=== PATIENT | male | born 1960 | race Caucasian/White ===

== ENCOUNTER 2020-05-06 13:55 | Emergency (ER) | payer BC, SELFPAY ==
--- NOTE | 2020-05-06 13:56 | ED.URI ---
HPI - URI/Sore Throat General Chief Complaint: Upper Respiratory Infection Stated Complaint: Covid 19 symptoms Time Seen by Provider: 05/06/20 13:56 Source: patient, family and RN notes reviewed History of Present Illness HPI Narrative: Patient is a 59-year-old male who presents the urgent care with complaints of Covid complications. Patient states he tested positive for Covid 10 days ago and has been using Tylenol and ibuprofen for his symptoms. Patient reports of a mild nonproductive cough with intermittent dyspnea. Patient states that he is short of breath on exertion but denies of any short of breath at rest. Denies of chest pain. States that he has had intermittent diarrhea. Reports of extreme fatigue that worsens throughout the day. Patient states that he woke up this morning and felt really good but is now very tired . Patient denies of any recent fevers. Denies of any upper respiratory symptoms such as runny nose, sore throat, sinus pressure. No other acute complaints. No acute distress noted. Patient does appear to be slightly fatigued. Patient aware of the plan of care. Some parts of this dictation were generated by voice recognition software and may contain typographical and/or grammatical inaccuracies. Related Data Allergies Allergy/AdvReac Type Severity Reaction Status Date / Time No Known Allergies Allergy Verified 05/06/20 14:14 Review of Systems Review of Systems: Narrative: CONSTITUTIONAL: Denies fever, chills, or sweats. Reports of fatigue that worsens throughout the day EYES: Denies visual changes, redness, or discharge. ENT: Denies rhinorrhea, congestion, sore throat, or otalgia. CARDIOVASCULAR: Denies chest pain, palpitations, or edema. RESPIRATORY: Reports of nonproductive cough with intermittent dyspnea on exertion GASTROINTESTINAL: Reports of intermittent mild diarrhea without abdominal pain, nausea, vomiting GENITOURINARY: Denies dysuria or hematuria. SKIN: Denies rash or itching. MUSCULOSKELETAL: Denies back pain, joint pain, or myalgia. NEUROLOGIC: Denies headache, numbness, or weakness. All other systems reviewed are negative, except as documented in HPI. PMFSH Comments At the time of my signature, I reviewed and agree with the nursing past medical, surgical, social, and family history. There is no relevant family history pertinent to the patient complaint. Exam Narrative: Exam Narrative: GENERAL: This is a well-nourished, well-developed patient, in no apparent distress. HEAD: normocephalic, atraumatic. EYES: PERRL. Sclera clear/white. Vision is grossly intact. EARS: External ears normal, auditory canals clear and without drainage, TMs normal without perforation. Hearing grossly intact. NOSE: External nose normal with no obvious nasal discharge, nares without redness, no rhinorrhea. THROAT: Mucous membranes moist, posterior pharynx clear. Moderate postnasal drainage NECK: Neck supple CARDIOVASCULAR: Regular rate and rhythm without murmurs, gallops, or rubs. RESPIRATORY: Clear to auscultation. Breath sounds equal bilaterally. No wheezes, rales, or rhonchi. SKIN: warm, intact with no suspicious lesions or rash, good texture and turgor. NEURO: awake, alert, and oriented to person, place and time. There were no obvious focal neurologic abnormalities. EXTREMITIES: No clubbing, cyanosis, or edema. Course Vital Signs Vital signs: Vital Signs Temperature 98.9 F 05/06/20 14:00 Pulse Rate 97 05/06/20 14:00 Respiratory Rate 20 05/06/20 14:00 Blood Pressure 119/79 05/06/20 14:00 Pulse Oximetry 96 05/06/20 14:00 Temperature 98.9 F 05/06/20 14:00 Pulse Rate 97 05/06/20 14:00 Respiratory Rate 20 05/06/20 14:00 Blood Pressure 119/79 05/06/20 14:00 Pulse Oximetry 96 05/06/20 14:00 Reviewed MDM - URI/Sore Throat MDM Narrative Medical decision making narrative: Advised the patient to complete steroid regimen as prescribed. Complete antibiotic regimen as prescribed
[2020-05-06 14:00] VITALS: BP 119/79; PULSE 97; RESP 20; TEMP 37.2; O2SAT 96
== END 2020-05-06 14:36 | disposition home or self-care (01) ==
PROVIDERS: Emergency Provider Nurse Practitioner Family
DX: U07.1 COVID-19 (principal); R05 Cough; R06.02 Shortness of breath
CPT/HCPCS: 99203; G0463